=== PATIENT | male | born 1990 | race Asian ===

== ENCOUNTER 2017-07-27 20:53 | Emergency (ER) | payer BC ==
[2017-07-27 21:07] VITALS: BP 125/80; PULSE 72; TEMP 98.5; BMI 37.3
--- NOTE | 2017-07-27 21:15 | PDOC ---
History of Present Illness - History of Present Illness Initial Comments: 07/27/17 21:29 Patient is a 26 M, with pMHx cholecystitis, GERD, and gout, who presents with 5 days of left sided back pain. 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 He states that after a few hours he began experiencing pain in his left thoracic area. He describes it as an aching , stabbing sensation and states that it radiates to his left abdomen and now his right side. He states that he tried taking Aleve and Advil with no relief ( 2 pills/day). He states that his pain is lessened when he walks and worse when he rests. Denies any urinary complaints, weakness, numbness, or tingling. Denies any fever , chills, nausea, vomiting, chest pain or shortness of breath. 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 No sore throat, No ear pain Cardiovascular: No chest pain or shortness of breath Respiratory:No cough, or wheezing. Gastrointestinal: No nausea, vomiting, diarrhea or constipation, No rectal bleeding Genitourinary: No dysuria, hematuria, or frequency Musculoskeletal: + back pain. No joint pain. Neurologic: No headache, vertigo, dizziness or loss of consciousness Psychiatric: No depression Skin: No rashes or easy bruising Endocrine: No increased thirst or abnormal weight change Allergic: No skin or latex allergy All other systems reviewed and normal PE General: Well-nourished well-developed individual, no acute distress HEENT: Throat: Normal, tonsils normal, no erythema or exudate Neck: Supple, no meningeal signs, no lymphadenopathy Eyes::Pupils equal reactive and round, extraocular motion intact Chest: Nontender to palpation Cardiac: S1-S2 normal, regular rate and rhythm, no murmurs rubs or gallops Respiratory: Lungs clear to auscultation bilateral Abdomen: Soft, nondistended, normal bowel sounds, nontender to palpation diffusely Back: Cervical thoracic lumbar spinal tenderness to palpation, left posterior upper chest wall tenderness to palpation. No tenderness on palpation of lower back. Extremities: Warm, dry, no cyanosis, clubbing, or edema Skin: No rashes Neuro: Alert and oriented x3, nonfocal exam, grossly intact, normal gait Psych: Normal mood and affect <Leticia Guerra - Last Filed: 07/27/17 21:29> - General History Source: Patient Exam Limitations: No Limitations - History of Present Illness Initial Comments: A portion of this note was documented by scribe services under my direction. I have reviewed the details of the note, within reason, and agree with the documentation. The case summary and management plan written by me. 07/27/17 21:59 Assessment and plan: This is a 26-year-old male who comes in complaining of back pain. Patient most likely pulled some muscle while he was lifting. Patient otherwise had a normal exam. Patient was given Toradol and a muscle relaxant with improvement in symptoms. Patient discharged home with prescription for Naprosyn and a Flexeril <Jerrod Frances I - Last Filed: 07/27/17 22:01> - General Chief Complaint: Pain Stated Complaint: UPPER BACK PAIN FOR 5 DAYS Time Seen by Provider: 07/27/17 21:08 Past History <Leticia Guerra - Last Filed: 07/27/17 21:29> - Past Medical History COPD: No GI Disorders: Yes (STOMACH TEAR) - Suicide/Smoking/Psychosocial Hx Smoking Status: No Smoking History: Never smoked Have you smoked in the past 12 months: No Number of Cigarettes Smoked Daily: 0 Information on smoking cessation initiated: No Hx Alcohol Use: Yes (SOCIAL) Drug/Substance Use Hx: No Substance Use Type: Alcohol <Jerrod Frances I - Last Filed: 07/27/17 22:01> - Past Medical History Allergies/Adverse Reactions: Allergies Allergy/AdvReac Type Severity Reaction Status Date / Time cheese Allergy Mild Hives Verified 07/27/17 20:55 MAYONAISE Allergy Mild Hives Uncoded 07/27/17 20:56 Home Medications: Ambulatory Orders Cyclobenzaprine HCl [Flexeril -] 10 mg PO HS #14 tablet 07/27/17 Naproxen 500 mg PO BID #28 tablet 07/27/17 Review of Systems - Review of Systems Comments:: 07/27/17 21:35 see HPI <Leticia Guerra - Last Filed: 07/27/17 21:29> *Physical Exam - Vital Signs Last Vital Signs Temp Pulse Resp BP Pulse Ox 98.5 F 72 16 125/80 98 07/27/17 20:55 07/27/17 20:55 07/27/17 20:55 07/27/17 20:55 07/27/17 20:55 - Physical Exam Comments: 07/27/17 21:35 see HPI <Leticia Guerra - Last Filed: 07/27/17 21:29> - Vital Signs Last Vital Signs Temp Pulse Resp BP Pulse Ox 98.5 F 72 16 125/80 98 07/27/17 20:55 07/27/17 20:55 07/27/17 20:55 07/27/17 20:55 07/27/17 20:55 <Jerrod Frances I - Last Filed: 07/27/17 22:01> *DC/Admit/Observation/Transfer - Attestations Scribe Attestion: 07/27/17 21:35 Documentation prepared by Leticia Guerra, acting as medical laboratory technical officer for Jerrod Frances MD. <Leticia Guerra - Last Filed: 07/27/17 21:29> - Discharge Dispostion Decision to Admit order: No <Jerrod Frances I - Last Filed: 07/27/17 22:01> Diagnosis at time of Disposition: Upper back pain on right side - Discharge Dispostion Disposition: HOME Condition at time of disposition: Stable - Prescriptions Prescriptions: Cyclobenzaprine HCl [Flexeril -] 10 mg PO HS #14 tablet Naproxen 500 mg PO BID #28 tablet - Patient Instructions Additional Instructions: For the pain take naproxen 1 tablet twice a day. Addition to that at nighttime before bed take Flexeril one tablet it will help you sleep. Return to the emergency department immediately with ANY new, persistent or worsening symptoms. Continue any medications as previously prescribed by your physician. You should follow up with your primary doctor as soon as possible regarding today's emergency department visit. . Please make sure your doctor reviews the results of your emergency evaluation. Thank you for coming to the Emergency Department today for your care. It was a pleasure to see you today. Please note that your evaluation is INCOMPLETE until you follow-up with your doctor.
[2017-07-27] MEDS ORDERED: KETOROLAC TROMETHAMINE 60 MG/2 ML VIAL IM ONE (21:17)
[2017-07-27] MEDS ORDERED: CYCLOBENZAPRINE HCL 10 MG TABLET (FP) PO ONE (21:17)
[2017-07-27] MEDS ORDERED: CYCLOBENZAPRINE HCL 10 MG TABLET (FP) ONE (21:28)
[2017-07-27] MEDS ORDERED: KETOROLAC TROMETHAMINE 60 MG/2 ML VIAL ONE (21:28)
[2017-07-27 21:44] LABS: PH,URINE 6.5 (4.5-8); URINE APPEARANCE Clear; URINE BILIRUBIN Negative (NEGATIVE); URINE GLUCOSE (UA) Negative (NEGATIVE); URINE KETONE Negative (NEGATIVE); URINE LEUK ESTERASE Negative (NEGATIVE); URINE NITRITE Negative (NEGATIVE); URINE PROTEIN Negative (NEGATIVE); URINE UROBILINOGEN 0.2 (0.2-1.0)
[2017-07-27 21:49] LABS: URINE COLOR YELLOW
== END 2017-07-27 22:08 | disposition home or self-care (01) ==
LOC: FER 20:53
PROC: 3E0333Z Introduction of Anti-inflammatory into Peripheral Vein, Percutaneous Approach (ICD-10-PCS; principal; 2017-07-27)
DX: M54.6 Pain in thoracic spine (principal); K21.9 Gastro-esophageal reflux disease without esophagitis; M10.9 Gout, unspecified
CPT/HCPCS: 81003; 99282-25

== ENCOUNTER 2017-08-17 09:43 | Emergency (ER) | payer BC ==
[2017-08-17 09:49] VITALS: BP 113/69; PULSE 68; TEMP 98.9; BMI 36.2
--- NOTE | 2017-08-17 09:49 | PDOC ---
History of Present Illness - General Chief Complaint: Pain Stated Complaint: RT FOOT PAIN Time Seen by Provider: 08/17/17 09:49 - History of Present Illness Initial Comments: 08/17/17 11:07 26 year old past medical history significant for gout presents emergency Department with gout flare to right great toe. Patient states flares started on Wednesday over the holiday weekend patient states he was eating slightly more red me that he normally does pain began to progressively worsen took a naproxen last night with no significant improvement. Pain is moderate to severe 8 out of 10 persistent constant warm to touch. Denies fever denies trauma no other associated symptoms. 08/17/17 11:08 Timing/Duration: changing over time Past History - Past Medical History Allergies/Adverse Reactions: Allergies Allergy/AdvReac Type Severity Reaction Status Date / Time cheese Allergy Hives Verified 08/17/17 09:46 mayonnaise Allergy Hives Verified 08/17/17 09:45 No Known Drug Allergies Allergy Verified 08/17/17 09:46 Home Medications: Ambulatory Orders Colchicine [Colcrys -] 0.6 mg PO DAILY #7 tablet 08/17/17 Naproxen [Naprosyn -] 250 mg PO ASDIR 08/17/17 Prednisone [Prednisone 50 MG TABLETS] 50 mg PO DAILY #3 tablet 08/17/17 COPD: No GI Disorders: Yes (STOMACH TEAR) Other medical history: GOUT - Suicide/Smoking/Psychosocial Hx Smoking Status: No Smoking History: Never smoked Have you smoked in the past 12 months: No Number of Cigarettes Smoked Daily: 0 Information on smoking cessation initiated: No Hx Alcohol Use: (occasional) Drug/Substance Use Hx: No Substance Use Type: Alcohol Review of Systems - Review of Systems Comments:: 08/17/17 11:10 ROS: A complete review of 10 out of 10 review of systems is taken and is negative apart from what is previously mentioned below and in the HPI. *Physical Exam - Vital Signs Last Vital Signs Temp Pulse Resp BP Pulse Ox 98.9 F 68 18 113/69 99 08/17/17 09:43 08/17/17 09:43 08/17/17 09:43 08/17/17 09:43 08/17/17 09:43 - Physical Exam Comments: 08/17/17 11:11 Vitals: Triage Vital signs reviewed General Appearance: no acute distress, well nourished well developed, Head: Atraumatic, Rectal: Exam deferred Extremities: Full range of motion to all extremities, no cyanosis, clubbing, or edema right great toe swollen tender to palpation slightly warm no surrounding cellulitis. Skin: Warm and dry, no rashes or lesions, no rash, no petechiae Neuro: AOX3; Cranial Nerves 2-12 grossly intact, Strength intact to all extremities, Sensation intact to all extremities,gait normal Psych: normal mood, normal affect Medical Decision Making - Medical Decision Making 08/17/17 11:08 26 result past medical history significant for gout presents emergency Department with gout flare to right great toe. Patient states flares started on Wednesday over the holiday weekend patient states he was eating slightly more red me that he normally does pain began to progressively worsen took a naproxen last night with no significant improvement. Pain is moderate to severe 8 out of 10 persistent constant warm to touch. Denies fever denies trauma no other associated symptoms. History examination consistent with gouty flare. We'll x-ray. Treat with prednisone and colchicine observe and reassess. Reevaluation. Patient feels somewhat better will discharge home with three-day course of prednisone and colchicine He will follow-up with his primary care provider this week. Findings, need for follow-up and strict return instructions discussed patient. *DC/Admit/Observation/Transfer Diagnosis at time of Disposition: Gout attack Qualifiers: Gout site: toe Gout etiology: unspecified cause Laterality: right Qualified Code(s): M10.9 - Gout, unspecified - Discharge Dispostion Disposition: HOME Condition at time of disposition: Stable Decision to Admit order: No - Referrals Referrals: Aleks Betancourt MD [Primary Care Provider] - - Patient Instructions Printed Discharge Instructions: Gout Additional Instructions: Drink plenty fluids. Take colchicine and prednisone as prescribed. Return to ED immediately for any severe worsening symptoms fever or for any concerns. Follow- up with your doctor in 1-2 days. - Post Discharge Activity
[2017-08-17] MEDS ORDERED: morphine CARPU-JECT 4 MG/1 ML DISP.SYRIN IM ONE (10:08)
[2017-08-17] MEDS ORDERED: predniSONE 20 MG TABLET (UD) PO ONE (10:08)
[2017-08-17] MEDS ORDERED: COLCHICINE 0.6 MG TABLET (FP) PO ONE (10:11)
[2017-08-17] MEDS ORDERED: predniSONE 20 MG TABLET (UD) ONE (10:12)
[2017-08-17] MEDS ORDERED: COLCHICINE 0.6 MG TABLET (FP) ONE (10:13)
== END 2017-08-17 11:25 | disposition home or self-care (01) ==
LOC: FER 09:43
DX: M10.9 Gout, unspecified (principal)
CPT/HCPCS: 73630-TC-RT-FY; 99283-25

== ENCOUNTER 2018-07-12 22:13 | Emergency (ER) | payer BC ==
[2018-07-12 22:20] VITALS: BP 116/69; PULSE 93; TEMP 98.4; BMI 36.9
[2018-07-12] MEDS ORDERED: KETOROLAC TROMETHAMINE 60 MG/2 ML VIAL IM ONE (23:05)
[2018-07-12] MEDS ORDERED: COLCHICINE 0.6 MG TABLET (FP) PO ONE (23:06)
[2018-07-12] MEDS ORDERED: KETOROLAC TROMETHAMINE 60 MG/2 ML VIAL ONE (23:14)
[2018-07-12] MEDS ORDERED: COLCHICINE 0.6 MG TABLET (FP) ONE (23:14)
--- NOTE | 2018-07-13 06:31 | PDOC ---
Documentation entered by Maria Teresa Mcallister SCRIBE, acting as scribe for Andra Roger MD. Andra Roger MD: This documentation has been prepared by the Esvin bush Xhesika, SCRIBE, under my direction and personally reviewed by me in its entirety. I confirm that the documentation accurately reflects all work, treatment, procedures, and medical decision making performed by me. History of Present Illness - General Chief Complaint: Pain, Acute Stated Complaint: BILATERAL WRIST PAIN X ONE WEEK Time Seen by Provider: 07/12/18 22:16 History Source: Patient Exam Limitations: No Limitations - History of Present Illness Initial Comments: 07/12/18 22:57 The patient is a 27 year old male, with a significant past medical history of GOUT and abdominal wall muscle tear (2010) who presents to the emergency department with one week of severe bilateral wrist pain. The patient states he could not sleep last night due to his pain, however, he rubbed icy hot on his wrists with no relief. The patient states his pain is aggravated with any type of wrist movement. 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 The patient notes he had 2 glasses of wine 2 days ago, however, denies any large amount of red meat, alcohol or other food consumption that patient is aware worsens his gout. The patient had blood drawn in [place], May 2018 ( during a time where he did not have gout flare) and was told his uric acid levels were high at that time. The patient denies any other joint pain. The patient denies falling or any trauma to wrist. The patient denies chest pain, shortness of breath, headache or dizziness. The patient denies fever, chills, nausea, vomit, diarrhea or constipation. The patient denies dysuria, frequency, urgency or hematuria. Allergies:NKDA Past surgical history:None reported Social history: Occasional alcohol use. No tobacco use. PCP: Aleks Iniguez Past History - Past Medical History Allergies/Adverse Reactions: Allergies Allergy/AdvReac Type Severity Reaction Status Date / Time No Known Drug Allergies Allergy Verified 08/17/17 09:46 cheese AdvReac Nausea Verified 07/12/18 22:16 mayonnaise AdvReac Nausea Verified 07/12/18 22:16 Home Medications: Ambulatory Orders Colchicine [Colcrys -] 0.6 mg PO BID #14 tablet 07/13/18 Prednisone [Deltasone] 40 mg PO DAILY #10 tablet 07/13/18 COPD: No GI Disorders: Yes (STOMACH TEAR) - Suicide/Smoking/Psychosocial Hx Smoking Status: No Smoking History: Never smoked Have you smoked in the past 12 months: No Number of Cigarettes Smoked Daily: 0 Information on smoking cessation initiated: No Hx Alcohol Use: Yes (OCCAS.) Drug/Substance Use Hx: No Substance Use Type: Alcohol Review of Systems - Review of Systems Able to Perform ROS?: Yes Comments:: 07/12/18 22:58 GENERAL/CONSTITUTIONAL: No fever or chills. No weakness. HEAD, EYES, EARS, NOSE AND THROAT: No change in vision. No ear pain or discharge. No sore throat. CARDIOVASCULAR: No chest pain or shortness of breath. RESPIRATORY: No cough, wheezing, or hemoptysis. GASTROINTESTINAL: No nausea, vomiting, diarrhea or constipation. GENITOURINARY: No dysuria, frequency, or change in urination. MUSCULOSKELETAL: (+) bilateral wrist pain. No joint or muscle swelling. No neck or back pain. SKIN: No rash NEUROLOGIC: No headache, vertigo, loss of consciousness, or change in strength/ sensation. ENDOCRINE: No increased thirst. No abnormal weight change. HEMATOLOGIC/LYMPHATIC: No anemia, easy bleeding, or history of blood clots. ALLERGIC/IMMUNOLOGIC: No hives or skin allergy. *Physical Exam - Vital Signs Last Vital Signs Temp Pulse Resp BP Pulse Ox 98.4 F 93 H 16 116/69 98 07/12/18 22:17 07/12/18 22:17 07/12/18 22:17 07/12/18 22:17 07/12/18 22:17 - Physical Exam Comments: 07/12/18 22:58 GENERAL: Awake, alert, and fully oriented, in no acute distress HEAD: No signs of trauma EYES: PERRLA, EOMI, sclera anicteric, conjunctiva clear ENT: Auricles normal inspection, hearing grossly normal, nares patent, oropharynx clear without exudates. Moist mucosa NECK: Normal ROM, supple, no lymphadenopathy, JVD, or masses EXTREMITIES: (+) moderate edema, mild tenderness of R and L wrists dorsal surface. (+) Increased warmth to touch. no edema. No clubbing or cyanosis. No cords or erythema. Remainder of extremities grossly intact. NEUROLOGICAL: Cranial nerves II through XII grossly intact. Normal speech, normal gait ED Treatment Course - ADDITIONAL ORDERS Additional order review: Laboratory Results 07/12/18 23:00 Uric Acid 9.8 H - RADIOLOGY Radiology Studies Ordered: Category Date Time Status WRIST- RIGHT [RAD] Stat Radiology 07/12/18 23:06 Taken WRIST-LEFT [RAD] Stat Radiology 07/12/18 23:06 Taken - Medications Given in the ED: ED Medications Discontinued Medications Generic Name Dose Route Start Last Admin Trade Name Antonietta PRN Reason Stop Dose Admin Colchicine 1.2 mg 07/12/18 23:06 07/12/18 23:21 Colcrys - PO 07/12/18 23:07 1.2 mg ONCE ONE Administration Ketorolac Tromethamine 60 mg 07/12/18 23:05 07/12/18 23:21 Toradol Injection - IM 07/12/18 23:06 60 mg ONCE ONE Administration Medical Decision Making - Medical Decision Making As noted above, this 27-year-old man with a history of gout has had several days of bilateral wrist pain (right greater than left). Patient has had previous flareups of his gout in his big toe only without involvement of any other joint. 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 As noted, he denies any dietary indiscretion in recent days other than 2 glasses of wine 2 days ago. Exam as noted. Since patient noted that he had elevated uric acid levels measured last month, repeat uric acid level was drawn. This was found to be significantly elevated at 9.8. X-rays of both wrists performed: Preliminary reading by ak-no evidence of fracture/dislocation/effusion or other acute abnormality Patient received Toradol 60 mg IM and colchicine 1.2 mg by mouth. Patient had some relief after the medications but felt more significant relief after removable wrist splint applied. 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 However, the patient states that he cannot miss work. Patient will also be started on prednisone 40 mg for daily for the next 3 days. He should take this with food. Also, colchicine 0.6 mg twice a day will be prescribed. He should plan on following up with his PMD, Dr. Betancourt within the next 48 hours *DC/Admit/Observation/Transfer Diagnosis at time of Disposition: Gout attack Qualifiers: Gout site: wrist Gout etiology: unspecified cause Laterality: unspecified laterality Qualified Code(s): M10.9 - Gout, unspecified - Discharge Dispostion Disposition: HOME Condition at time of disposition: Stable - Prescriptions Prescriptions: Colchicine [Colcrys -] 0.6 mg PO BID #14 tablet Prednisone [Deltasone] 40 mg PO DAILY #10 tablet - Referrals Referrals: Aleks Betancourt MD [Primary Care Provider] - 2 Days - Patient Instructions Printed Discharge Instructions: Gout, Low-Purine Diet Additional Instructions: Prednisone 40 mg daily for what5 days; take with food Colchicine 0.6 milligrams twice a day Right wrist splint as needed; avoid strenuous activity involving the upper body as much as possible for the next week Drink plenty of water Avoid foods that worsen gout (see list) Follow-up with Dr. Betancourt within the next 2 days - Post Discharge Activity
== END 2018-07-13 00:32 | disposition home or self-care (01) ==
LOC: FER 22:13
PROC: 3E0233Z Introduction of Anti-inflammatory into Muscle, Percutaneous Approach (ICD-10-PCS; principal; 2018-07-12)
DX: M10.9 Gout, unspecified (principal)
CPT/HCPCS: 36415; 73110-TC-LT-FY; 73110-TC-RT-FY; 84550; 99281-25

== ENCOUNTER 2018-09-23 11:17 | Emergency (ER) | payer BC ==
--- NOTE | 2018-09-23 11:20 | PDOC ---
History of Present Illness - General Chief Complaint: Pain Stated Complaint: LEFT HIP, LEFT THIGH PAIN Time Seen by Provider: 09/23/18 11:19 - History of Present Illness Initial Comments: 09/23/18 11:55 27yo male with hx of GERD and GOUT with acute worsening of L hip pain. Pt state pain started over the weekend ad the pain is in his L hip and radiates to his left knee. States he woke up with the pain on wednesday morning. States he has been taking aleve 1x per day since without relief. States pain with any ROM of the LLE. 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 Hx of gout, last flare was in his wrists. States he stopped taking his meds for gout a few weeks ago and has been strick with his diet. Pt deneis trauma. Denies back pain. No loss of control of bowel or bladder. No abd pain. No n/v/d. No paresthesias or weakness, only pain. No swelling. No calf cramping, but felt like something "was blocking his thigh" earlier this week. Pt states he was able to go to work each day but had a lot of pain. Pt states he was painting and working on cars the day prior to the pain starting but denies an inciting event. Pt denies f/c. No penile pain or discharge, no testicular pain. No cp/sob. No other complaints. 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 Pmx: gout, gerd pshx: shoulder sx all: nkda, cheese/allen meds: aleve prn Past History - Past Medical History Allergies/Adverse Reactions: Allergies Allergy/AdvReac Type Severity Reaction Status Date / Time No Known Drug Allergies Allergy Verified 09/23/18 11:23 cheese AdvReac Nausea Verified 09/23/18 11:23 mayonnaise AdvReac Nausea Verified 09/23/18 11:23 Home Medications: Ambulatory Orders Colchicine 0.6 mg PO DAILY #14 tablet 09/23/18 Indomethacin 50 mg PO TID PRN #9 capsule 09/23/18 predniSONE [Deltasone -] 40 mg PO DAILY #4 tablet 09/23/18 COPD: No GI Disorders: Yes (STOMACH TEAR) - Suicide/Smoking/Psychosocial Hx Smoking Status: No Smoking History: Never smoked Have you smoked in the past 12 months: No Number of Cigarettes Smoked Daily: 0 Hx Alcohol Use: Yes (OCCAS.) Drug/Substance Use Hx: No Substance Use Type: Alcohol Review of Systems - Review of Systems Able to Perform ROS?: Yes Is the patient limited Nigerian proficient: No Constitutional: No: Chills, Fever HEENTM: No: Nose Pain, Throat Pain Respiratory: No: Cough, Shortness of Breath, SOB at Rest Cardiac (ROS): No: Chest Pain, Irregular Heart Rate ABD/GI: No: Diarrhea, Nausea, Vomiting, Abdominal cramping : No: Burning, Dysuria, Discharge, Flank Pain, Pain, Testicular Mass, Testicular Swelling, Testicular Pain Musculoskeletal: Yes: Gout, Joint Pain (hip pain L), Muscle Pain Integumentary: No: Bruising, Rash Neurological: No: Headache, Numbness, Paresthesia, Tingling, Weakness, Ataxia All Other Systems: Reviewed and Negative *Physical Exam - Vital Signs 09/23/18 12:05 Selected Entries 09/23/18 11:17 Temperature 98.4 F Pulse Rate 68 Respiratory 18 Rate Blood Pressure 114/62 Blood Pressure 79 Mean O2 Sat by Pulse 99 Oximetry (%) Weight 120.202 kg - Physical Exam General Appearance: Yes: Nourished, Appropriately Dressed, Mild Distress HEENT: positive: Normal ENT Inspection, Normal Voice Neck: positive: Supple. negative: Tender lateral, Tender midline Respiratory/Chest: positive: Lungs Clear, Normal Breath Sounds. negative: Respiratory Distress Cardiovascular: positive: Regular Rhythm, Regular Rate, S1, S2. negative: Edema Gastrointestinal/Abdominal: positive: Soft. negative: Guarding, Rebound, Tenderness Musculoskeletal: positive: Muscle Spasm, Vertebral Tenderness (lower lumbar ttp , L paraspinal ttp, ttp over SI joint). negative: CVA Tenderness Extremity: positive: Normal Capillary Refill, Other (L hip ttp, any rom with internal or external rotation causes pain, flexion or extension at the knee causes L hip pain, no calf swelling, no edema, pedal pulses intact, straight leg raise causes L hip pain and low back pain at 5 degrees. sensation intact entire leg). negative: Normal Range of Motion, Swelling, Calf Tenderness Integumentary: positive: Normal Color, Dry, Warm. negative: Rash Neurologic: positive: Fully Oriented, Alert, Normal Mood/Affect ED Treatment Course - LABORATORY CBC & Chemistry Diagram: 09/23/18 11:58 09/23/18 11:58 Medical Decision Making - Medical Decision Making 09/23/18 12:55 uric acid is elevated 09/23/18 13:11 a/p: 27yo male with hx of gout with acute L hip and leg pain -pt with limited ROM of the joint secondary to pain, no warmth to the join -low back ttp with paraspinal ttp -did stop gout meds a few weeks ago -will send labs, add uric acid -will obtain xrays of back and pelvis/hip -will obtain ultrasound LLE given feeling of being "blocked" earlier this week -will give pain meds, anti-inflamm, will monitor and reassess 09/23/18 14:20 xrays without acute findings pt states mild improvement in pain, but still with limited ROM dvt study negative 09/23/18 14:59 pt with poss gout of the L hip will add prednisone 09/23/18 16:12 pt states feeling much better after steroids able to move the leg, stand and walk states he wants to go home discussed treatment and home and need to see orthopedics and rheum stable for dc to home answered all questions pt verbalizes undertanding of all instructions *DC/Admit/Observation/Transfer Diagnosis at time of Disposition: Gout attack, Hip pain - Discharge Dispostion Disposition: HOME Condition at time of disposition: Stable Decision to Admit order: No - Prescriptions Prescriptions: Colchicine 0.6 mg PO DAILY #14 tablet Indomethacin 50 mg PO TID PRN #9 capsule PRN Reason: Pain predniSONE [Deltasone -] 40 mg PO DAILY #4 tablet - Referrals Referrals: Aleks Betancourt MD [Primary Care Provider] - Joaquín Vasquez MD [Staff Physician] - Solomon Pacheco DO [Staff Physician] - Lenard Grant MD [Staff Physician] - - Patient Instructions Printed Discharge Instructions: DI for Gout, Help for Hip Pain Additional Instructions: Please take all medications as prescribed. Please return to the ED with any further concerns or complaints. Please make an appointment to see the garnisher and the orthopedist. Please also follow up with your PMD. If you pain worsens, you develop numbness or tingling or weakness please return to the ED immediately. - Post Discharge Activity
[2018-09-23] MEDS ORDERED: METHOCARBAMOL 500 MG TABLET PO ONE (11:45)
[2018-09-23] MEDS ORDERED: KETOROLAC TROMETHAMINE 60 MG/2 ML VIAL IM ONE (11:45)
[2018-09-23 11:47] VITALS: BMI 36.9
[2018-09-23] MEDS ORDERED: KETOROLAC TROMETHAMINE 60 MG/2 ML VIAL ONE (12:02)
[2018-09-23] MEDS ORDERED: METHOCARBAMOL 500 MG TABLET ONE (12:02)
[2018-09-23 12:16] LABS: BASO % 0.3 % (0-2.0); EOS % 1.9 % (0-4.5); HEMATOCRIT 42.6 % (35.4-49); HEMOGLOBIN 14.2 GM/dl (11.7-16.9); LYMPH % 39.6 % (8-40); MCH 29.7 pg (25.7-33.7); MCHC 33.4 g/dl (32.0-35.9); MEAN CELL VOLUME 88.9 fl (80-96); MEAN PLT VOLUME 9.8 fl (7.5-11.1); MONO % 7.1 % (3.8-10.2); NEUT % 51.1 % (42.8-82.8); PLATELET COUNT 230 K/MM3 (134-434); RBC 4.79 M/mm3 (4.00-5.60); RDW 12.4 % (11.9-15.9); WHITE BLOOD COUNT 8.3 K/mm3 (4.0-10.8)
[2018-09-23 12:24] LABS: ALBUMIN 3.9 g/dl (3.4-5.0); BILIRUBIN,TOTAL 0.5 mg/dl (0.2-1); CALCIUM 8.8 mg/dl (8.5-10); CREATININE 0.9 mg/dl (0.55-1.3); POTASSIUM 3.6 mmol/L (3.5-5.1); TOT PROT 7.3 g/dl (6.4-8.2)
[2018-09-23] MEDS ORDERED: COLCHICINE 0.6 MG CAP PO ONE (12:55)
[2018-09-23] MEDS ORDERED: COLCHICINE 0.6 MG CAP ONE (12:59)
[2018-09-23] MEDS ORDERED: predniSONE 20 MG TABLET (UD) PO ONE (14:23)
[2018-09-23] MEDS ORDERED: predniSONE 20 MG TABLET (UD) ONE (14:26)
[2018-09-23 16:29] VITALS: BP 111/67; PULSE 65; TEMP 98.2
== END 2018-09-23 16:30 | disposition home or self-care (01) ==
LOC: FER 11:17
PROC: 3E0233Z Introduction of Anti-inflammatory into Muscle, Percutaneous Approach (ICD-10-PCS; principal; 2018-09-23)
DX: M10.9 Gout, unspecified (principal); M25.552 Pain in left hip
CPT/HCPCS: 36415; 72100-TC-FY; 73523-TC-FY; 73552-TC-LT-FY; 80053; 82550; 82553; 84550; 85025; 93971-TC; 99284-25

== ENCOUNTER 2019-01-11 07:53 | Emergency (ER) | payer BC ==
[2019-01-11 08:01] VITALS: BMI 37.6
[2019-01-11] MEDS ORDERED: hydrOXYzine PAMOATE 25 MG CAPSULE (FP) PO ONE (08:34)
[2019-01-11] MEDS ORDERED: KETOROLAC TROMETHAMINE 60 MG/2 ML VIAL ONE (08:34)
[2019-01-11] MEDS ORDERED: KETOROLAC TROMETHAMINE 60 MG/2 ML VIAL IM ONE (08:35)
--- NOTE | 2019-01-11 08:35 | PDOC ---
History of Present Illness - General Chief Complaint: Pain, Acute Stated Complaint: BACK AND CHEST PAIN Time Seen by Provider: 01/11/19 08:23 - History of Present Illness Initial Comments: 01/11/19 09:28 Chief complaint: Chest pain and low back pain HPI: Patient has 2 unrelated complaints. The first is chest pain beginning about 5 days ago. Present when he woke up in the morning. Described as a "tightness" across his chest from the left side to the right side. Pain is constant, nonradiating, nonpleuritic, and there has been no nausea, vomiting, diaphoresis, shortness of breath, lightheadedness, or dizziness. 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 This occurred after a fall directly onto the coccyx 3 days ago. The pain is constant, but worse with movement. He is taking Aleve with partial relief. There is no radiation of the pain to the legs, and no distal numbness tingling or weakness. Bowel and bladder function is normal, without incontinence or retention. Review of systems: As noted above. There is chest pain but no shortness of breath, abdominal pain, hematemesis, melena, bloody stool, visual or focal neurologic symptoms, urinary tract symptoms. Remainder of systems reviewed and negative Past medical history: Patient is a healthy male with no significant medical or surgical illnesses past or present, no medications other than Aleve for the present pain. 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 Stable home and family. No sign of depression or anxiety Family history: Father with diabetes, mother with breast cancer and high blood pressure, siblings healthy. Specifically, no PR, CVA, PVD. Physical exam: Alert and oriented well-developed well-nourished no acute distress lying comfortably at rest, cheerful and cooperative Afebrile, vital signs normal except for mild sinus bradycardia, 59/min recorded , 51/min on EKG PERRLA, fundi benign, ENT clear Neck supple without bruit mass or nodes Chest clear with full breath sounds bilaterally, no wheezes rales or rhonchi, no splinting with deep inspiration No chest wall or rib cage tenderness or deformity CV regular without murmur rub or gallop pulses full and symmetric no JVD or edema no bruits 50 and regular Abdomen soft nontender without mass organomegaly. No CVAT Neurological C2 to 12 intact. Strength full and symmetric. No focal sensorimotor deficits. Gait stable and unimpaired. Cerebellar function intact Extremities: No CCE. No visible or palpable trauma Skin clear, no rash, adequate turgor and wet mucous membranes LS spine: There is maintenance of the normal lumbar lordosis. There is no tenderness, deformity, or inflammation noted over the vertebral bodies. Patient indicates pain over the coccyx, but there is no palpable deformity Impression: 1) musculoskeletal chest pain, rule out acute coronary syndrome 2) previous coccyx rule out fracture. No sign of spinal cord injury. Plan: EKG, enzymes, chest x-ray, x-ray of the coccyx, and further medical evaluation depending on results. Analgesics. 01/11/19 10:08 Past History - Past Medical History Allergies/Adverse Reactions: Allergies Allergy/AdvReac Type Severity Reaction Status Date / Time No Known Drug Allergies Allergy Verified 01/11/19 07:54 cheese AdvReac Nausea Verified 01/11/19 07:54 mayonnaise AdvReac Nausea Verified 01/11/19 07:54 Home Medications: Ambulatory Orders Diclofenac Sodium 50 mg PO QID PRN #20 tablet. 01/11/19 hydrOXYzine PAMOATE [Vistaril -] 50 mg PO TID PRN #20 capsule 01/11/19 COPD: No GI Disorders: Yes (STOMACH TEAR) Other medical history: BILAT SHL - Psycho Social/Smoking Cessation Hx Smoking Status: No Smoking History: Never smoked Have you smoked in the past 12 months: No Number of Cigarettes Smoked Daily: 0 Hx Alcohol Use: Yes (OCASIONAL) Drug/Substance Use Hx: No Substance Use Type: Alcohol *Physical Exam - Vital Signs Last Vital Signs Temp Pulse Resp BP Pulse Ox 97.6 F 59 L 16 124/68 99 01/11/19 07:54 01/11/19 07:54 01/11/19 07:54 01/11/19 07:54 01/11/19 07:54 ED Treatment Course - LABORATORY CBC & Chemistry Diagram: 01/11/19 09:27 01/11/19 09:27 Medical Decision Making - Medical Decision Making 01/11/19 10:08 X-ray of the coccyx: No definite fracture Chest x-ray: Clear EKG: Sinus bradycardia 51/min. Right axis. There are flattening of the ST segments in lead II, III, V5 and V6 compared to prior EKG on file dated August. There is also approximately [address] elevation in lead V2, which appears to be J-point elevation, and was also present in prior EKGs. Since the ST segment changes appear to be new, as well as the bradycardia, further blood work will be obtained and cardiology consulted. 01/11/19 11:[address] Cavanaugh, [facility]. Case was thoroughly discussed, including the subtle EKG abnormalities. She recommended another set of enzymes , and echocardiogram, and Dr. Lewis will see patient in ER later today 01/11/19 16:02 2 sets of cardiac enzymes are negative Echocardiogram is negative He was evaluated by Dr. Curtis, bit setter, in the emergency room today. He reviewed the EKGs, chest x-ray, echocardiogram, and laboratory results. He feels the patient is stable for discharge and will follow-up as an outpatient. Patient is discharged with medication for back pain and instructions that if his chest symptoms worsen or any additional symptoms develop such as nausea, diaphoresis, shortness of breath, lightheadedness or dizziness, he is instructed to return to the emergency room immediately. Otherwise he is referred for follow-up to Dr. Lewis and also Dr. Hernandez, back specialist. Fully ambulatory and in no severe pain or other distress at discharge with family to follow-up as directed Discharge - Discharge Information Problems reviewed: Yes Clinical Impression/Diagnosis: Musculoskeletal pain Condition: Stable Disposition: HOME - Admission No - Additional Discharge Information Prescriptions: Diclofenac Sodium 50 mg PO QID PRN #20 tablet.dr PRN Reason: Back Pain hydrOXYzine PAMOATE [Vistaril -] 50 mg PO TID PRN #20 capsule PRN Reason: back spasms - Follow up/Referral Referrals: Aleks Betancourt MD [Primary Care Provider] - John Curtis MD [Staff Physician] - Kevin Hernandez MD [Staff Physician] - - Patient Discharge Instructions Patient Printed Discharge Instructions: DI for Atypical Chest Pain, DI for Low Back Pain Additional Instructions: As far as we can tell, your chest pain appears to be noncardiac related. However, if symptoms worsen, in other words, the pain becomes more severe, or is associated with nausea, sweating, lightheadedness or dizziness, or shortness of breath, he should return to the emergency room immediately. Otherwise follow -up with bit setter as directed. X-ray of your back shows no fractures. There is probably a severe bruise of the tailbone. This should improve with time, and rest. Medication has been supplied to your pharmacy that will alleviate your symptoms until your injury heals. - Post Discharge Activity Work/Back to School Note: Back to Work
[2019-01-11] MEDS ORDERED: hydrOXYzine PAMOATE 50 MG CAPSULE (FP) PO ONE (08:36)
[2019-01-11 09:50] LABS: BASO % 0.3 % (0-2.0); EOS % 3.9 % (0-4.5); HEMATOCRIT 42.4 % (35.4-49); HEMOGLOBIN 14.2 GM/dl (11.7-16.9); LYMPH % 40.6 % (8-40); MCH 29.3 pg (25.7-33.7); MCHC 33.6 g/dl (32.0-35.9); MEAN CELL VOLUME 87.3 fl (80-96); MEAN PLT VOLUME 9.3 fl (7.5-11.1); MONO % 7.8 % (3.8-10.2); NEUT % 47.4 % (42.8-82.8); PLATELET COUNT 233 K/MM3 (134-434); RBC 4.86 M/mm3 (4.00-5.60); RDW 11.9 % (11.9-15.9); WHITE BLOOD COUNT 9.1 K/mm3 (4.0-10.8)
[2019-01-11 09:58] LABS: ALBUMIN 3.9 g/dl (3.4-5.0); BILIRUBIN,TOTAL 0.3 mg/dl (0.2-1); CALCIUM 8.6 mg/dl (8.5-10); CREATININE 0.9 mg/dl (0.55-1.3); POTASSIUM 3.9 mmol/L (3.5-5.1); TOT PROT 7.2 g/dl (6.4-8.2)
[2019-01-11] MEDS ORDERED: ASPIRIN 81 MG CHEWABLE TABLETS PO ONE (10:12)
[2019-01-11] MEDS ORDERED: ASPIRIN 81 MG CHEWABLE TABLETS ONE (10:16)
[2019-01-11] MEDS ORDERED: NITROGLYCERIN 2% OINTMENT - 1GM PACKET TD ONE ×3 (11:36→13:35)
--- NOTE | 2019-01-11 15:24 | ECHO ---
Name: JUAN M SÁNCHEZ Lizzeth Exam:Adult Echocardiogram Study Date: 01/11/2019 02:50 PM Age: 28 yrs Reason For Study: LV Function Height: 70 in Weight: 271 lb BSA: 2.4 m2 MMode/2D Measurements & Calculations IVSd: 0.94 cm Ao root diam: 3.1 cm LVIDd: 5.0 cm LA dimension: 3.3 cm LVIDs: 2.8 cm LVPWd: 0.81 cm EDV(Teich): 120.2 ml LVOT diam: 2.0 cm ESV(Teich): 28.7 ml Doppler Measurements & Calculations MV E max harsha: 74.4 cm/sec MV A max harsha: 43.8 cm/sec MV dec slope: 331.9 cm/sec2 MV E/A: 1.7 Ao V2 max: 141.3 cm/sec LV V1 max P.6 mmHg Ao max P.0 mmHg LV V1 max: 94.8 cm/sec MELISSA(V,D): 2.1 cm2 PA V2 max: 99.4 cm/sec PI end-d harsha: 98.1 cm/sec PA max P.0 mmHg Procedure A two-dimensional transthoracic echocardiogram with color flow and Doppler was performed. Left Ventricle The left ventricular size, thickness and function are normal. The left ventricular ejection fraction is normal. The transmitral spectral Doppler flow pattern is normal for age. The left ventricular wall mo tion is normal. Right Ventricle The right ventricle is normal in size and function. Atria Normal left and right atrial size and function. Mitral Valve There is mild mitral valve thickening. There is no mitral valve stenosis. There is trace mitral regur gitation. Tricuspid Valve The tricuspid valve is not well visualized, but is grossly normal. There is no tricuspid stenosis. Th ere was insufficient TR detected to calculate RV systolic pressure. Aortic Valve The aortic valve is normal in structure and function. No hemodynamically significant valvular aortic stenosis. No aortic regurgitation is present. Pulmonic Valve The pulmonic valve is not well visualized. There is no pulmonic valvular stenosis. Mild pulmonic valv ular regurgitation. Great Vessels The aortic root is normal size. Pericardium/Pleura There is no pericardial effusion. Interpretation Summary The left ventricular size, thickness and function are normal The left ventricular ejection fraction is normal. The left ventricular wall motion is normal. The right ventricle is normal in size and function. The transmitral spectral Doppler flow pattern is normal for age. There is trace mitral regurgitation. There was insufficient TR detected to calculate RV systolic pressure. MD German Harrington 01/11/2019 03:23 PM
[2019-01-11 16:07] VITALS: BP 100/56; PULSE 83; TEMP 98.2
--- NOTE | 2019-01-11 16:51 | CON.CARD ---
Cardiology Consult (text) - Consultation Consultation Note: cc: cp hpi: 28 m no sig pmhx here with cp. About 5 days ago started to notice achey pain across front of chest left and right. Mild, occurs at rest, intermittent each day. No associated sxs. CP resolved now. Cp worse with deep breaths and laying in certain positions. No sob palps dizzy loc pnd orthopnea le edema. No anginal sxs. Pt also fell off a broken chair few days ago and has pain in lower back/tailbone after this. pmh: per hpi psh: none social: no tob fam: no premature cad, scd ros: per hpi; all others nl meds: Ambulatory Orders Diclofenac Sodium 50 mg PO QID PRN #20 tablet. 01/11/19 hydrOXYzine PAMOATE [Vistaril -] 50 mg PO TID PRN #20 capsule 01/11/19 pe: Vital Signs Period Temp Pulse Resp BP Sys/Delaney Pulse Ox Last 24 Hr 97.6 F-98.2 F 59-83 16-18 100-125/56-80 99-100 nad no jvd rrr s1s2 no mrg cta bl nl eff aao3 no le e/c/c abd nt nd pos bs no jaundice diaphoresis pos dp pt no carotid bruits +chest wall tenderness Laboratory Last Values WBC 9.1 K/mm3 (4.0-10.8) 01/11/19 09:27 RBC 4.86 M/mm3 (4.00-5.60) 01/11/19 09:27 Hgb 14.2 GM/dl (11.7-16.9) 01/11/19 09:27 Hct 42.4 % (35.4-49) 01/11/19 09:27 MCV 87.3 fl (80-96) 01/11/19 09:27 MCH 29.3 pg (25.7-33.7) 01/11/19 09:27 MCHC 33.6 g/dl (32.0-35.9) 01/11/19 09:27 RDW 11.9 % (11.9-15.9) 01/11/19 09:27 Plt Count 233 K/MM3 (134-434) 01/11/19 09:27 MPV 9.3 fl (7.5-11.1) 01/11/19 09:27 Absolute Neuts (auto) 4.3 K/mm3 01/11/19 09:27 Neutrophils % 47.4 % (42.8-82.8) 01/11/19 09:27 Lymphocytes % 40.6 % (8-40) H 01/11/19 09:27 Monocytes % 7.8 % (3.8-10.2) 01/11/19 09:27 Eosinophils % 3.9 % (0-4.5) D 01/11/19 09:27 Basophils % 0.3 % (0-2.0) 01/11/19 09:27 Sodium 136 mmol/L (136-145) 01/11/19 09:27 Potassium 3.9 mmol/L (3.5-5.1) 01/11/19 09:27 Chloride 107 mmol/L (98-107) 01/11/19 09:27 Carbon Dioxide 25 mmol/L (21-32) 01/11/19 09:27 Anion Gap 4 MMOL/L (8-16) L 01/11/19 09:27 BUN 17.0 mg/dl (7-18) 01/11/19 09:27 Creatinine 0.9 mg/dl (0.55-1.3) 01/11/19 09:27 Est GFR (CKD-EPI)AfAm 135.19 01/11/19 09:27 Est GFR (CKD-EPI)NonAf 116.64 01/11/19 09:27 Random Glucose 91 mg/dl (74-106) 01/11/19 09:27 Calcium 8.6 mg/dl (8.5-10) 01/11/19 09:27 Total Bilirubin 0.3 mg/dl (0.2-1) 01/11/19 09:27 AST 29 U/L (15-37) 01/11/19 09:27 ALT 54 U/L (13-61) 01/11/19 09:27 Alkaline Phosphatase 31 U/L (45-117) L 01/11/19 09:27 Creatine Kinase 383 U/L (26-308) H 01/11/19 13:28 Creatine Kinase Index 1.3 % (0.0-5.0) 01/11/19 13:28 CK-MB (CK-2) 5.2 ng/mL (0.5-3.6) H 01/11/19 13:28 Troponin I < 0.03 ng/ml (0.00-0.05) 01/11/19 13:28 Total Protein 7.2 g/dl (6.4-8.2) 01/11/19 09:27 Albumin 3.9 g/dl (3.4-5.0) 01/11/19 09:27 ecg: sr nl intervals no st changes, nonspec tw changes, similar to 2015 ecg cxr: clear lungs a/p: 28 m no sig pmhx here with cp. cp: -atypical cp, seems MSK, no signs acs or cardiac etiology -trops negx2, ecg benign (nonspec tw changes similar to 2015 ecg), echo unremarkable -cardiac champagne stable for dc, can f/u as outpt
--- NOTE | 2019-01-12 13:37 | EKG ---
Test Reason : Blood Pressure : / mmHG Vent. Rate : 051 BPM Atrial Rate : 051 BPM P-R Int : 130 ms QRS Dur : 102 ms QT Int : 398 ms P-R-T Axes : -02 093 -03 degrees QTc Int : 366 ms SINUS BRADYCARDIA RIGHTWARD AXIS NONSPECIFIC T WAVE ABNORMALITY ABNORMAL ECG NO PREVIOUS ECGS AVAILABLE Confirmed by CONRAD BETANCUR MD ([id number]) on 01/12/2019 1:36:34 PM Referred By: Confirmed By:CONRAD BETANCUR MD
== END 2019-01-11 16:20 | disposition home or self-care (01) ==
LOC: FER 07:53
PROC: 3E0233Z Introduction of Anti-inflammatory into Muscle, Percutaneous Approach (ICD-10-PCS; principal; 2019-01-11)
DX: R07.89 Other chest pain (principal); Z91.011 Allergy to milk products; M79.10 Myalgia, unspecified site; K92.9 Disease of digestive system, unspecified
CPT/HCPCS: 36415; 71045-TC-FY; 72220-TC-FY; 80053; 82550; 82553; 84484; 85025; 93005; 93306-TC; 99284-25

== ENCOUNTER 2019-01-16 10:17 | Emergency (ER) | payer BC ==
[2019-01-16 10:29] VITALS: BP 131/77; PULSE 84; TEMP 98.8; BMI 37.2
[2019-01-16] MEDS ORDERED: diazePAM 5 MG TABLET PO ONE (11:07)
[2019-01-16] MEDS ORDERED: KETOROLAC TROMETHAMINE 30 MG/1 ML VIAL IM ONE (11:07)
[2019-01-16] MEDS ORDERED: KETOROLAC TROMETHAMINE 30 MG/1 ML VIAL ONE (11:09)
[2019-01-16] MEDS ORDERED: diazePAM 5 MG TABLET ONE (11:09)
--- NOTE | 2019-01-16 12:52 | PDOC ---
History of Present Illness - General Chief Complaint: Pain Stated Complaint: BACK PAIN RADIATES TO CHEST WITH DEEP BREATHING. Time Seen by Provider: 01/16/19 10:35 - History of Present Illness Initial Comments: 01/16/19 12:57 28 years old with no past medical history presents to the emergency department back chest low back and coccyx pain status post a fall 1 week ago patient was sitting on a chair chair broke landed very hard on the floor on 1 of the legs of the chair injuring his coccyx and reverberating through his back He was seen in the emergency department a week ago he had some chest pain and back pain at that time which was determined to be musculoskeletal but did have an EKG and troponins performed he was sent home on diclofenac and hydroxyzine but has been having worsening musculoskeletal upper back chest and chest wall pain. Pain is very positional is worse when he moves it is worse when he takes a deep breath at rest he has no shortness of breath at baseline and no chest pain with exertion no diaphoresis no dizziness pain Past History - Past Medical History Allergies/Adverse Reactions: Allergies Allergy/AdvReac Type Severity Reaction Status Date / Time No Known Drug Allergies Allergy Verified 01/16/19 10:18 cheese AdvReac Nausea Verified 01/16/19 10:18 mayonnaise AdvReac Nausea Verified 01/16/19 10:18 Home Medications: Ambulatory Orders Diclofenac Sodium 50 mg PO QID PRN #20 tablet. 01/11/19 hydrOXYzine PAMOATE [Vistaril -] 50 mg PO TID PRN #20 capsule 01/11/19 Diazepam [Valium] 5 mg PO BID 4 Days #8 tablet MDD 2 01/16/19 COPD: No GI Disorders: Yes (STOMACH TEAR) - Psycho Social/Smoking Cessation Hx Smoking Status: No Smoking History: Never smoked Have you smoked in the past 12 months: No Number of Cigarettes Smoked Daily: 0 Hx Alcohol Use: Yes (OCASIONAL) Drug/Substance Use Hx: No Substance Use Type: Alcohol Review of Systems - Review of Systems Comments:: 01/16/19 12:58 ROS: A complete review of 10 out of 10 review of systems is taken and is negative apart from what is previously mentioned below and in the HPI. *Physical Exam - Vital Signs Last Vital Signs Temp Pulse Resp BP Pulse Ox 98.8 F 84 19 131/77 98 01/16/19 10:18 10/28/19 10:18 01/16/19 10:18 01/16/19 10:18 01/16/19 10:18 ED Treatment Course - Medications Given in the ED: ED Medications Discontinued Medications Generic Name Dose Route Start Last Admin Trade Name Antonietta PRN Reason Stop Dose Admin Diazepam 5 mg 01/16/19 11:07 01/16/19 11:13 Valium - PO 01/16/19 11:08 5 mg ONCE ONE Administration Ketorolac Tromethamine 30 mg 01/16/19 11:07 01/16/19 11:14 Toradol Injection - IM 01/16/19 11:08 30 mg ONCE ONE Administration Medical Decision Making - Medical Decision Making 01/16/19 12:59 Previous images labs and EKG reviewed no ischemia troponin negative x2 on his last visit with no acute fracture dislocation noted discussed with patient repeat imaging as patient is ready had negative imaging of his chest and lower back as well as an EKG and troponin and that his pain is very reproducible on exam were in agreement that his pain is most likely musculoskeletal nature we will try Toradol IM and Valium p.o. in the emergency department observe and reassess Reevaluation patient feels somewhat better will discharge home on short course of Valium continue diclofenac and provide patient with orthopedic follow-up. Findings, the need for follow-up and strict return instructions discussed with patient. Discharge - Discharge Information Problems reviewed: Yes Clinical Impression/Diagnosis: Musculoskeletal pain Condition: Stable - Admission No - Additional Discharge Information Prescriptions: Diazepam [Valium] 5 mg PO BID 4 Days #8 tablet MDD 2 - Follow up/Referral Referrals: Sergio Oneill MD, FAANS [Staff Physician] - - Patient Discharge Instructions Patient Printed Discharge Instructions: Back Pain (Alternative Therapy) Additional Instructions: Discontinue diclofenac and hydroxyzine. Take 2 tabs Aleve twice a day for the next 3 days take Valium as prescribed for the next 3 days. Ice all sore affected areas if still having pain follow-up with Dr. Stiles neurosurgery to have an MRI arranged. Return to the emergency department immediately for any severe uncontrollable pain weakness numbness or for any concerns. - Post Discharge Activity Work/Back to School Note: Back to Work, Parent(s) Back to Work Note
== END 2019-01-16 13:15 | disposition home or self-care (01) ==
LOC: FER 10:17
PROC: 3E0233Z Introduction of Anti-inflammatory into Muscle, Percutaneous Approach (ICD-10-PCS; principal; 2019-01-16)
DX: M79.10 Myalgia, unspecified site (principal); W07.XXXA Fall from chair, initial encounter; Y93.89 Activity, other specified; Y92.89 Other specified places as the place of occurrence of the external cause; Z91.011 Allergy to milk products; K92.9 Disease of digestive system, unspecified
CPT/HCPCS: 99282-25

== ENCOUNTER 2021-06-11 19:35 | Emergency (ER) | payer BC, OTHER ==
[2021-06-11 19:58] VITALS: BP 123/77; PULSE 90; TEMP 98.9; BMI 39.7
[2021-06-11] MEDS ORDERED: KETOROLAC TROMETHAMINE 60 MG/2 ML VIAL IM ONE (20:47)
[2021-06-11] MEDS ORDERED: KETOROLAC TROMETHAMINE 60 MG/2 ML VIAL ONE (20:49)
== END 2021-06-11 21:41 | disposition home or self-care (01) ==
LOC: FER 19:35
PROC: 3E023GC Introduction of Other Therapeutic Substance into Muscle, Percutaneous Approach (ICD-10-PCS; principal; 2021-06-11)
DX: J40 Bronchitis, not specified as acute or chronic (principal); M54.50 Low back pain, unspecified; G89.18 Other acute postprocedural pain
CPT/HCPCS: 71046-TC-FY; 72100-TC-FY; 99284-25

== ENCOUNTER 2021-06-15 11:09 | Observation (INO) | payer OTHER ==
[2021-06-15 12:18] LABS: BILIRUBIN,TOTAL 0.8 mg/dl (0.2-1); CALCIUM 9.2 mg/dl (8.5-10); TOT PROT 7.5 g/dl (6.4-8.2)
[2021-06-15] MEDS ORDERED: SODIUM CHLORIDE 0.9% 1000 ML INFUS.BAG IV ONE (13:07)
[2021-06-15 13:16] LABS: EPITHELIAL CELLS RARE /hpf
[2021-06-15 13:25] LABS: BASO % 0.3 % (0-2.0); EOS % 1.4 % (0-4.5); HEMATOCRIT 38.8 % (35.4-49); HEMOGLOBIN 13.3 GM/dL (11.7-16.9); LYMPH % 29.7 % (8-40); MCH 29.5 pg (25.7-33.7); MCHC 34.4 g/dl (32.0-35.9); MEAN CELL VOLUME 85.7 fl (80-96); MONO % 10.3 % (3.8-10.2); NEUT % 58.3 % (42.8-82.8); PLATELET COUNT 230 10^3/uL (134-434); RBC 4.53 M/mm3 (4.00-5.60); RDW 12.5 % (11.9-15.9); WHITE BLOOD COUNT 12.7 K/mm3 (4.0-10.0)
[2021-06-15] MEDS ORDERED: CEFTRIAXONE 2,000 MG in DEXTROSE 5%-WATER - 50 ML IVPB ONE (16:12)
[2021-06-15] MEDS ORDERED: VANCOMYCIN 1 GM in D5W (PRE-DOCKED) 1,000 MG/250 ML IVPB ONE (16:12)
[2021-06-15] MEDS ORDERED: morphine CARPU-JECT 2 MG/1 ML DISP.SYRIN IVPUSH ONE ×2 (16:14→16:26)
[2021-06-15] MEDS ORDERED: ACETAMINOPHEN 1000 MG/100 ML BAG IVPB ONE (16:14)
[2021-06-15] MEDS ORDERED: ACETAMINOPHEN INJECTION 100 ML IVPB ONE (16:29)
[2021-06-15] MEDS ORDERED: morphine SULFATE 4 MG/ML VIAL ONE (16:29)
[2021-06-15] MEDS ORDERED: VANCOMYCIN 1,000 MG VIAL (RESTRICTED TO ID ONLY) ONE (16:30)
[2021-06-15] MEDS ORDERED: TIZANIDINE HCL 4 MG TABLET PO PRN (17:20)
[2021-06-15] MEDS ORDERED: SODIUM CHLORIDE 0.45% 1,000 ML IV SCH (17:30)
[2021-06-15 18:26] VITALS: BMI 40.7
[2021-06-15] MEDS: morphine SULFATE 4 MG/ML VIAL IVPUSH PRN (20:34)
[2021-06-15] MEDS: BACLOFEN 10 MG TABLET (FP) PO SCH (21:36)
[2021-06-15] MEDS: oxyCODONE HCL 5 MG TABLET PO PRN (22:09)
[2021-06-16] MEDS ORDERED: TIZANIDINE HCL 4 MG TABLET PO PRN (07:24)
[2021-06-16 08:16] LABS: ALBUMIN 3.4 g/dl (3.4-5.0); BILIRUBIN,TOTAL 0.7 mg/dl (0.2-1); CALCIUM 8.8 mg/dl (8.5-10); CREATININE 2.5 mg/dl (0.55-1.3); TOT PROT 6.5 g/dl (6.4-8.2)
[2021-06-16 09:13] LABS: BASO % 0.3 % (0-2.0); EOS % 1.3 % (0-4.5); HEMATOCRIT 34.6 % (35.4-49); HEMOGLOBIN 12.4 GM/dL (11.7-16.9); LYMPH % 25.1 % (8-40); MCH 30.9 pg (25.7-33.7); MCHC 35.7 g/dl (32.0-35.9); MEAN CELL VOLUME 86.6 fl (80-96); MEAN PLT VOLUME 8.7 fl (7.5-11.1); MONO % 9.3 % (3.8-10.2); PLATELET COUNT 205 10^3/uL (134-434); RDW 12.1 % (11.9-15.9)
[2021-06-16] MEDS: oxyCODONE HCL 5 MG TABLET PO PRN ×2 (09:36→20:38)
[2021-06-16] MEDS: PANTOPRAZOLE 40 MG TABLET PO SCH (09:39)
[2021-06-16] MEDS ORDERED: SODIUM CHLORIDE 1,000 ML IV SCH (11:15)
[2021-06-16] MEDS: morphine SULFATE 4 MG/ML VIAL IVPUSH PRN (13:27)
[2021-06-16] MEDS: BACLOFEN 10 MG TABLET (FP) PO SCH (21:05)
[2021-06-16 21:33] LABS: CALCIUM 8.7 mg/dl (8.5-10); CREATININE 2.9 mg/dl (0.55-1.3)
[2021-06-17] MEDS: PANTOPRAZOLE 40 MG TABLET PO SCH (09:45)
[2021-06-17] MEDS ORDERED: ACETAMINOPHEN 325 MG TABLET (FP) PO PRN (10:18)
[2021-06-17 12:00] LABS: ALBUMIN 3.8 g/dl (3.4-5.0); BILIRUBIN,TOTAL 0.6 mg/dl (0.2-1); CALCIUM 9.4 mg/dl (8.5-10); CREATININE 2.9 mg/dl (0.55-1.3); TOT PROT 7.3 g/dl (6.4-8.2)
[2021-06-17 13:28] LABS: BASO % 0.3 % (0-2.0); EOS % 3.2 % (0-4.5); HEMATOCRIT 35.2 % (35.4-49); HEMOGLOBIN 12.5 GM/dL (11.7-16.9); LYMPH % 32.7 % (8-40); MCH 30.5 pg (25.7-33.7); MCHC 35.5 g/dl (32.0-35.9); MEAN CELL VOLUME 85.8 fl (80-96); MEAN PLT VOLUME 8.5 fl (7.5-11.1); MONO % 9.3 % (3.8-10.2); NEUT % 54.5 % (42.8-82.8); PLATELET COUNT 232 10^3/uL (134-434); RDW 12.1 % (11.9-15.9); WHITE BLOOD COUNT 9.7 K/mm3 (4.0-10.0)
[2021-06-17 14:07] VITALS: BP 144/82; PULSE 68; TEMP 98.1
[2021-06-17] MEDS ORDERED: ACETAMINOPHEN/CAFFEINE/BUTALBITAL 1 TAB PO ONE (14:15)
[2021-06-20 15:07] LABS: ATYPICAL pANCA <1:20 titer (Neg:<1:20); C-ANCA <1:20 titer (Neg:<1:20)
== END 2021-06-17 14:44 | disposition home or self-care (01) ==
LOC: FER 11:09 → INTOOBSV 14:55 → UNDOADMIN 14:55 → FM/S 14:55
PROVIDERS: ADMIT Internal Medicine; ATTEND Nurse Practitioner Acute Care
PROC: 3E03329 Introduction of Other Anti-infective into Peripheral Vein, Percutaneous Approach (ICD-10-PCS; principal; 2021-06-15)
PROC: 3E033NZ Introduction of Analgesics, Hypnotics, Sedatives into Peripheral Vein, Percutaneous Approach (ICD-10-PCS; 2021-06-15)
PROC: 3E0337Z Introduction of Electrolytic and Water Balance Substance into Peripheral Vein, Percutaneous Approach (ICD-10-PCS; 2021-06-15)
DX: N17.9 Acute kidney failure, unspecified (principal); E86.0 Dehydration; M54.9 Dorsalgia, unspecified; J40 Bronchitis, not specified as acute or chronic; D72.829 Elevated white blood cell count, unspecified; Z29.9 Encounter for prophylactic measures, unspecified; R10.9 Unspecified abdominal pain; K76.0 Fatty (change of) liver, not elsewhere classified; R50.9 Fever, unspecified; R19.7 Diarrhea, unspecified; Z91.018 Allergy to other foods
CPT/HCPCS: 36415; 71046-TC-FY; 74176-TC; 76705-TC; 76775-TC; 80048; 80053; 81003; 81015; 82550; 82553; 82570; 83520; 84156; 84300; 85025; 85651; 86038; 86140; 86160; 86256; 87040; 87086; 96361; 96365; 96375; 96376; 97116-GP; 97162-GP; 99285-25; C9803-CS; G0378; U0003; U0005

== ENCOUNTER 2021-07-20 03:54 | Emergency (ER) | payer OTHER ==
[2021-07-20 04:02] VITALS: BP 119/72; PULSE 106; TEMP 100.8; BMI 39.6
== END 2021-07-20 04:10 | disposition left against medical advice (07) ==
LOC: FER 03:54
DX: R06.02 Shortness of breath (principal)
CPT/HCPCS: 99283-25

== ENCOUNTER 2022-02-03 11:21 | Inpatient (IN) | payer OTHER ==
[2022-02-03] MEDS ORDERED: MAG HYDROX/AL HYDROX/SIMETH 30 ML UNIT-DOSE CUP PO ONE (12:14)
[2022-02-03] MEDS ORDERED: FAMOTIDINE 20 MG TABLET PO ONE (12:14)
[2022-02-03] MEDS ORDERED: KETOROLAC TROMETHAMINE 15 MG/ML VIAL IVPUSH ONE (12:15)
[2022-02-03] MEDS ORDERED: FAMOTIDINE 20 MG TABLET ONE (12:36)
[2022-02-03] MEDS ORDERED: KETOROLAC TROMETHAMINE 15 MG/ML VIAL ONE (12:36)
[2022-02-03] MEDS ORDERED: MAG HYDROX/AL HYDROX/SIMETH 30 ML UNIT-DOSE CUP ONE (12:36)
[2022-02-03 13:13] LABS: HEMATOCRIT 45.4 % (35.4-49); HEMOGLOBIN 15.3 G/dL (11.7-16.9); MCH 29.4 pg (25.7-33.7); MCHC 33.8 g/dl (32.0-35.9); MEAN PLT VOLUME 9.3 fl (7.5-11.1); PLATELET COUNT 243.6 10^3/uL (134-434); RBC 5.22 10^6/uL (4.00-5.60); RDW 13.5 % (11.9-15.9); WHITE BLOOD COUNT 9.9 10^3/uL (4.0-10.8)
[2022-02-03 13:26] LABS: PLATELET ESTIMATE ADEQUATE
[2022-02-03 13:47] LABS: BILIRUBIN,TOTAL 0.6 mg/dl (0.2-1); CALCIUM 8.7 mg/dl (8.5-10); TOT PROT 7.4 g/dl (6.4-8.2)
[2022-02-03] MEDS ORDERED: morphine CARPU-JECT 2 MG/1 ML DISP.SYRIN IVPUSH ONE ×2 (14:52→18:26)
[2022-02-03] MEDS ORDERED: morphine SULFATE 4 MG/ML VIAL ONE ×2 (15:06→18:29)
[2022-02-03] MEDS ORDERED: ONDANSETRON 4 MG/2 ML VIAL IVPUSH PRN (18:27)
[2022-02-03] MEDS ORDERED: SODIUM CHLORIDE 1,000 ML IV SCH (18:30)
[2022-02-03 20:20] VITALS: BMI 41.3
[2022-02-04] MEDS ORDERED: MELATONIN 5 MG TABLETS PO PRN ×2 (00:59→17:30)
[2022-02-04 08:26] LABS: INR 1.09 (0.83-1.09); PROTHROMBIN TIME (PATIENT) 12.5 SEC (9.7-13.0)
[2022-02-04 08:29] LABS: ACTIVATED PTT 35.6 SECONDS (25.2-36.5)
[2022-02-04] MEDS ORDERED: PANTOPRAZOLE 40 MG TABLET PO SCH (10:00)
[2022-02-04] MEDS ORDERED: ONDANSETRON 4 MG/2 ML VIAL IVPUSH PRN ×2 (12:52→17:30)
[2022-02-04] MEDS ORDERED: PROMETHAZINE HCL 25 MG/1 ML VIAL IVPUSH PRN ×2 (12:52→17:30)
[2022-02-04] MEDS ORDERED: oxyCODONE HCL 5 MG TABLET PO PRN (12:52)
[2022-02-04 12:57] LABS: ALBUMIN 3.7 g/dl (3.4-5.0); BILIRUBIN,TOTAL 0.7 mg/dl (0.2-1); CALCIUM 8.5 mg/dl (8.5-10); TOT PROT 6.9 g/dl (6.4-8.2)
[2022-02-04] MEDS ORDERED: SUCCINYLCHOLINE CHLORIDE 200 MG/10 ML SYRINGE ONE (13:01)
[2022-02-04] MEDS ORDERED: ROCURONIUM BROMIDE 50 MG/5 ML SYRINGE ONE (13:01)
[2022-02-04] MEDS ORDERED: PROPOFOL 40 ML ONE (13:01)
[2022-02-04] MEDS ORDERED: BUPIVACAINE HCL/PF 2.5 MG/ML - 30 ML VIAL IJ ONE (13:06)
[2022-02-04] MEDS ORDERED: GLYCOPYRROLATE 0.2 MG/1 ML VIAL ONE ×2 (14:31→14:32)
[2022-02-04] MEDS ORDERED: NEOSTIGMINE METHYLSULFATE 0.5 MG/1 ML - 10 ML MDV ONE (14:31)
[2022-02-04] MEDS ORDERED: FENTANYL CITRATE/PF 50 MCG/ML VIAL ONE (15:22)
[2022-02-04] MEDS ORDERED: HYDROmorphone HCL/PF 1 MG/ML VIAL ONE (15:37)
[2022-02-04] MEDS: HYDROmorphone HCL CARPU-JECT 1 MG/1 ML DISP.SYRIN IVPUSH PRN ×2 (15:40→15:50)
[2022-02-04] MEDS ORDERED: HYDROmorphone HCL CARPU-JECT 1 MG/1 ML DISP.SYRIN IVPUSH PRN (17:30)
[2022-02-04] MEDS ORDERED: SODIUM CHLORIDE 1,000 ML IV SCH (17:30)
[2022-02-04] MEDS: oxyCODONE HCL 5 MG TABLET PO PRN (21:46)
[2022-02-05] MEDS: oxyCODONE HCL 5 MG TABLET PO PRN (02:43)
[2022-02-05 08:22] LABS: HEMATOCRIT 40.1 % (35.4-49); HEMOGLOBIN 13.8 G/dL (11.7-16.9); MCH 29.8 pg (25.7-33.7); MCHC 34.5 g/dl (32.0-35.9); MEAN CELL VOLUME 86.6 fl (80-96); MEAN PLT VOLUME 8.6 fl (7.5-11.1); PLATELET COUNT 252.1 10^3/uL (134-434); RBC 4.63 10^6/uL (4.00-5.60); RDW 13.4 % (11.9-15.9); WHITE BLOOD COUNT 15.9 10^3/uL (4.0-10.8)
[2022-02-05 08:32] LABS: ALBUMIN 3.5 g/dl (3.4-5.0); BILIRUBIN,TOTAL 1.1 mg/dl (0.2-1); CALCIUM 8.7 mg/dl (8.5-10); CREATININE 0.9 mg/dl (0.55-1.3); TOT PROT 6.8 g/dl (6.4-8.2)
[2022-02-05 09:30] VITALS: BP 106/59; PULSE 76; RESP 16; TEMP 99.7
[2022-02-05] MEDS ORDERED: PANTOPRAZOLE 40 MG TABLET PO SCH (10:00)
== END 2022-02-05 13:23 | disposition home or self-care (01) | DRG 263 ==
LOC: FER 11:21 → FM/S 17:54
PROVIDERS: ADMIT Internal Medicine; ATTEND Family Medicine
PROC: 0FT44ZZ Resection of Gallbladder, Percutaneous Endoscopic Approach (ICD-10-PCS; principal; 2022-02-04 13:51)
DX: K80.10 Calculus of gallbladder with chronic cholecystitis without obstruction (principal); K21.9 Gastro-esophageal reflux disease without esophagitis; Z68.41 Body mass index [BMI] 40.0-44.9, adult; E66.01 Morbid (severe) obesity due to excess calories; R74.01 Elevation of levels of liver transaminase levels
CPT/HCPCS: 0241U-QW; 36415; 71045-TC-FY; 76705-TC; 80053; 83690; 85025; 85027; 85610; 85730; 86850; 86900; 86901; 88304-TC; 93005; 94760; 99285-25

== ENCOUNTER 2022-04-18 12:50 | Emergency (ER) | payer OTHER ==
[2022-04-18 13:02] VITALS: BP 122/86; PULSE 79; RESP 18; TEMP 98.7; BMI 41.1
[2022-04-18] MEDS ORDERED: KETOROLAC TROMETHAMINE 60 MG/2 ML VIAL IM ONE (13:07)
[2022-04-18] MEDS ORDERED: LIDOCAINE 5% TOPICAL PATCH TP ONE (13:08)
[2022-04-18] MEDS ORDERED: METHOCARBAMOL 500 MG TABLET PO ONE (13:08)
[2022-04-18] MEDS ORDERED: KETOROLAC TROMETHAMINE 60 MG/2 ML VIAL ONE (13:24)
[2022-04-18] MEDS ORDERED: LIDOCAINE 5% TOPICAL PATCH ONE (13:25)
[2022-04-18] MEDS ORDERED: METHOCARBAMOL 500 MG TABLET ONE (13:25)
[2022-04-18] MEDS ORDERED: LIDOCAINE PATCH REMOVAL MC SCH (22:00)
== END 2022-04-18 18:05 | disposition home or self-care (01) ==
LOC: FER 12:50
PROC: 3E0233Z Introduction of Anti-inflammatory into Muscle, Percutaneous Approach (ICD-10-PCS; principal; 2022-04-18)
DX: M54.50 Low back pain, unspecified (principal)
CPT/HCPCS: 72131-TC; 99284-25